=== PATIENT | female | born 1935 | race Caucasian/White ===

== ENCOUNTER → 2016-07-12 | Outpatient (CLI) | payer MEDICARE, BC ==
[2016-06-20 11:39] VITALS: BP 105/56
[~2016-07-12] MED LIST: ACET325T21 PO; ALLO100T PO; AMLO5TAB2; AMOX1TAB58 PO; ASPI-482 PO; ATEN25TA PO; ATOR10TA60 PO; BENZ100C2 PO; BUPR150T15 PO; CALC500T50 PO; CHOL100013 PO; CIPR250T; CLOP75TA27 PO; COLC0.6T34 PO; CYAN10005 PO; DOCU-27 PO; Erythromycin Base PO; FERR-26 PO; FISH OIL OMEGA1 EACH PO; FLUD0.1T; FLUT1DIS3 IH; FURO-69 PO; HYDR12.58 PO; HYDR1TAB12 PO; HYDR1TAB20 PO; IPRA3AMP NEB; ISOS30TA4; ISOS30TA4 PO; LOVA40TA2 PO; NITR100C62 PO; OMEG1CAP6 PO; OMEG300C PO; ONDA4TAB7 PO; PANT40GR PO; POTA25TA4 PO; PRED5POW MC; PRED5TAB PO; PREG75CA PO; SILV400C TP; TAMS0.4C97 PO; ZINC30OI TP
[2016-07-12 12:16] LABS: ALBUMIN 3.3 g/dL (3.4-5.0); CALCIUM 8.9 mg/dL (8.5-10.1); CREATININE 1.7 mg/dL (0.6-1.0); MAGNESIUM 1.8 mg/dL (1.8-2.4); PHOSPHORUS 3.5 mg/dL (2.6-4.7); POTASSIUM 3.3 mmol/L (3.5-5.1)
[2016-07-12 12:17] LABS: BASO # 0.1 x10^3/uL (0.0-0.2); BASO % 1 % (0-3); EOS % 7 % (0-3); HEMATOCRIT 31.5 % (36.0-47.0); HEMOGLOBIN 10.1 g/dL (12.0-15.5); LYMPH # 2.7 x10^3/uL (1.0-4.8); LYMPH % 27 % (24-48); MEAN CORPUSCULAR HEMOGLOBIN 32 pg (25-35); MEAN CORPUSCULAR HGB CONC 32 g/dL (31-37); MEAN CORPUSCULAR VOLUME 98 fL (79-100); MONO % 7 % (0-9); NEUT % 58 % (31-73); PLATELET COUNT 207 x10^3/uL (140-400); RED CELL DISTRIBUTION WIDTH 17.2 % (11.5-14.5); WHITE BLOOD COUNT 9.7 x10^3/uL (4.0-11.0)
[2016-07-13 03:21] LABS: PTH INTACT 56 pg/mL (15-65)
== END | disposition home or self-care (01) ==
LOC: LAB 11:36
PROVIDERS: ATTEND Nurse Practitioner Family
DX: N18.4 Chronic kidney disease, stage 4 (severe) (principal); D63.1 Anemia in chronic kidney disease; N39.0 Urinary tract infection, site not specified; N25.81 Secondary hyperparathyroidism of renal origin; Z68.26 Body mass index [BMI] 26.0-26.9, adult
CPT/HCPCS: 36415; 80069; 83735; 83970; 85027

== ENCOUNTER → 2016-11-22 | Outpatient (CLI) | payer MEDICARE, BC ==
[~2016-11-22] MED LIST changes: +BENZ100C15 PO; -BENZ100C2 PO; -CALC500T50 PO; +CALC500T54 PO; -CLOP75TA27 PO; +CLOP75TA57 PO; +DOCU-109 PO; -DOCU-27 PO
[2016-11-22 11:35] VITALS: BP 113/55
[2016-11-22 12:13] LABS: BACTERIA,URINE MANY /HPF (0-FEW); BILIRUBIN,URINE NEGATIVE (NEG); GLUCOSE,URINE NEGATIVE (NEG); NITRITE,URINE NEGATIVE (NEG); PH,URINE 5.5; PROTEIN,URINE 30 mg/dL (NEG-TRACE); SQUAMOUS EPITHELIAL CELL,UR FEW /LPF; UROBILINOGEN,URINE 0.2 mg/dL (0.2 mg/dL); WBC,URINE TNTC /HPF (0-4)
== END | disposition home or self-care (01) ==
LOC: OPS 10:57
PROVIDERS: ATTEND Internal Medicine Infectious Disease
DX: B96.1 Klebsiella pneumoniae [K. pneumoniae] as the cause of diseases classified elsewhere (principal)
CPT/HCPCS: 81001; 87086; 87186

== ENCOUNTER 2016-12-07 18:04 | Emergency (ER) | payer MEDICARE, BC ==
--- NOTE | 2016-12-07 18:30 | PHYS DOC ---
Past Medical History Past Medical History: CAD, CHF, COPD, Depression, Hypertension, Renal Failure, Other Additional Past Medical Histor: NARCOLEPSY, gout, chronic kidney disease Past Surgical History: Angioplasty, Appendectomy, Cholecystectomy, Tonsillectomy, Other Additional Past Surgical Histo: Back surgery Alcohol Use: None Drug Use: None Social History Narrative: Lives with family; non ambulatory Adult General Chief Complaint Chief Complaint: MECHANICAL FALL HPI HPI Patient is a 81 year old female who presents with fall. She is nonambulatory and was transferring from the commode to her chair and fell. She hit the back of her head against the couch. No LOC. Some neck pain. No numbness or tingling or weakness of her arms or legs. Family was in the home and was able to come to her aid. Review of Systems Review of Systems Constitutional: Denies fever or chills Eyes: Denies change in visual acuity, redness, or eye pain HENT: Denies nasal congestion or sore throat Respiratory: Denies cough or shortness of breath Cardiovascular: No chest pain, no syncope. GI: Denies abdominal pain, nausea, vomiting, bloody stools or diarrhea : Denies dysuria or hematuria Musculoskeletal: Denies back pain or joint pain Integument: Denies rash or skin lesions Neurologic: Some headache, No focal weakness or sensory changes Endocrine: Denies polyuria or polydipsia Allergies Allergies Allergies Coded Allergies Type Severity Reaction Last Updated Verified I S O L A T I O N *CONTACT* Allergy Unknown 12/03/16 Yes No Known Medication Allergies Allergy Unknown 12/03/16 Yes Physical Exam Physical Exam Constitutional: Well developed, well nourished, no acute distress, non-toxic appearance. HENT: Normocephalic, pain to palpation to back of scalp; no bruising; no laceration; no swelling. TM clear bilaterally without hemotympanum, bilateral external ears normal, oropharynx moist, no oral exudates, nose normal. Eyes: PERRLA, EOMI, conjunctiva normal, no discharge. Neck: Normal range of motion, no tenderness, supple, no stridor. No pain on palpation of cervical spine. No stepoff or crepitance. Cardiovascular:Heart rate regular rhythm, no murmur Lungs & Thorax: Bilateral breath sounds clear to auscultation Abdomen: Bowel sounds normal, soft, no tenderness, no masses, no pulsatile masses. Skin: Warm, dry, no erythema, no rash. Back: No tenderness, no CVA tenderness. Extremities: No tenderness, no cyanosis, no clubbing, ROM limited (baseline) of RLE. Some bilaterally edema. Neurologic: Alert and oriented X 3, normal motor function, normal sensory function, no focal deficits noted. Psychologic: Affect normal, judgement normal, mood normal. Current Patient Data Vital Signs Vital Signs Date Time Temp Pulse Resp B/P (MAP) Pulse Ox O2 Delivery O2 Flow Rate FiO2 12/07/16 18:04 98.3 86 20 148/71 (96) 95 Nasal Cannula 2.0 98.3 Radiology/Procedures Radiology/Procedures [facility] [address] [place] [address] IMAGING REPORT Signed PATIENT: HELDER BARTHOLOMEW ACCOUNT: [id number] : 1935 LOCATION: ER AGE: 81 SEX: F EXAM STATUS: REG ER ORD. PHYSICIAN: LORRIE LEONARD MD REASON: fall PROCEDURE: CT HEAD AND CERVICAL SPINE WO PQRS Compliance Statement: One or more of the following individualized dose reduction techniques were utilized for this examination: 1. Automated exposure control 2. Adjustment of the mA and/or kV according to patient size 3. Use of iterative reconstruction technique CT HEAD AND CERVICAL SPINE WITHOUT CONTRAST History: fall, hit back of head, Comparison: CT head and cervical spine without contrast, October 23, 2013. Procedure: Axial images are obtained of the head from the skull base through the vertex without IV contrast. Noncontrast helical CT of the cervical spine was performed. Axial, sagittal, and coronal reconstructions were obtained. Findings: The ventricles and sulci are prominent, consistent with age-related cerebral atrophy. There is scattered periventricular white matter hypoattenuation. This is a nonspecific finding but is commonly due to chronic small vessel ischemic disease in a patient of this age. No mass-effect, midline shift, hemorrhage or obvious acute infarction is identified. Basilar cisterns are patent. Bone windows demonstrate no significant calvarial abnormality. The visualized paranasal sinuses are clear. Mastoid air cells are well aerated. There is no evidence of acute fracture or acute malalignment. There is disc space narrowing and degenerative endplate spurring. This is most advanced at C5/C6. The facet joints are intact, mild to moderately hypertrophic. There is neural foraminal narrowing at C5/C6 that appears to be severe bilaterally, worse on the right. Visualized soft tissues of the neck demonstrate no significant abnormalities. The visualized lung apices are clear. IMPRESSION: 1. No acute intracranial abnormality. 2. No acute fracture of the cervical spine. Electronically signed by: Nasim Nichole MD (12/07/2016 7:13 PM) [facility] [id number] DICTATED and SIGNED BY: NASIM NICHOLE MD DATE: 12/07/161905 CC: LORRIE LEONARD MD; STACY CASEY MD ~ Course & Med Decision Making Course & Med Decision Making Pertinent Labs and Imaging studies reviewed. (See chart for details) Met patient upon arrival to the ED. CT head and cspine ordered. At 1925 PM: CT report negative for acute injury for head and neck. D/C to home with care instructions. Dragon Disclaimer Dragon Disclaimer This electronic medical record was generated, in whole or in part, using a voice recognition dictation system. Departure Departure Impression: Primary Impression: Fall Additional Impression: Head contusion Disposition: HOME, SELF-CARE Condition: GOOD Referrals: STACY CASEY MD (PCP) Patient Instructions: Facial or Scalp Contusion Problem Qualifiers LORRIE LEONARD MD Dec 07, 2016 18:30
[2016-12-07 19:08] VITALS: BP 152/69
--- NOTE | 2016-12-07 19:16 | RAD ---
RS Compliance Statement: One or more of the following individualized dose reduction techniques were utilized for this examination: 1. Automated exposure control 2. Adjustment of the mA and/or kV according to patient size 3. Use of iterative reconstruction technique CT HEAD AND CERVICAL SPINE WITHOUT CONTRAST History: fall, hit back of head, Comparison: CT head and cervical spine without contrast, October 23, 2013. Procedure: Axial images are obtained of the head from the skull base through the vertex without IV contrast. Noncontrast helical CT of the cervical spine was performed. Axial, sagittal, and coronal reconstructions were obtained. Findings: The ventricles and sulci are prominent, consistent with age-related cerebral atrophy. There is scattered periventricular white matter hypoattenuation. This is a nonspecific finding but is commonly due to chronic small vessel ischemic disease in a patient of this age. No mass-effect, midline shift, hemorrhage or obvious acute infarction is identified. Basilar cisterns are patent. Bone windows demonstrate no significant calvarial abnormality. The visualized paranasal sinuses are clear. Mastoid air cells are well aerated. There is no evidence of acute fracture or acute malalignment. There is disc space narrowing and degenerative endplate spurring. This is most advanced at C5/C6. The facet joints are intact, mild to moderately hypertrophic. There is neural foraminal narrowing at C5/C6 that appears to be severe bilaterally, worse on the right. Visualized soft tissues of the neck demonstrate no significant abnormalities. The visualized lung apices are clear. IMPRESSION: 1. No acute intracranial abnormality. 2. No acute fracture of the cervical spine. Electronically signed by: Nasim Nichole MD (12/07/2016 7:13 PM) [facility]
== END 2016-12-07 19:38 | disposition home or self-care (01) ==
LOC: ER 18:04
DX: S00.03XA Contusion of scalp, initial encounter (principal); M54.2 Cervicalgia; I25.10 Atherosclerotic heart disease of native coronary artery without angina pectoris; I13.0 Hypertensive heart and chronic kidney disease with heart failure and stage 1 through stage 4 chronic kidney disease, or unspecified chronic kidney disease; I50.9 Heart failure, unspecified; N18.9 Chronic kidney disease, unspecified; J44.9 Chronic obstructive pulmonary disease, unspecified; F32.9 Major depressive disorder, single episode, unspecified; M10.9 Gout, unspecified; G47.419 Narcolepsy without cataplexy; Z90.49 Acquired absence of other specified parts of digestive tract; Z91.041 Radiographic dye allergy status; Z98.61 Coronary angioplasty status; W18.39XA Other fall on same level, initial encounter; Y93.89 Activity, other specified; Y92.89 Other specified places as the place of occurrence of the external cause; Y99.8 Other external cause status
CPT/HCPCS: 70450; 72125; 99284-25

== ENCOUNTER → 2017-01-16 | Outpatient (CLI) | payer MEDICARE, BC ==
[2017-01-15 11:08] VITALS: BP 153/66
--- NOTE | 2017-01-16 10:36 | RAD ---
Indication difficulty breathing. Pulmonary fibrosis. Noncontrast imaging through the chest was performed. Note is made of a previous examination June 01, 2016. Imaging through the upper abdomen is unremarkable. Moderately extensive coronary calcification is noted. There is no significant hilar or mediastinal adenopathy. There are some fibrotic changes in the left upper lobe and, to a lesser extent, in the right upper lobe as well as at the right lung base. Advanced fibrotic changes are not seen. No significant emphysematous changes are seen. There is no pleural fluid in either lung. A dominant soft tissue mass in either lung is not seen. IMPRESSION: Modest fibrotic changes in the lungs. No definite acute finding seen PQRS Compliance Statement: One or more of the following individualized dose reduction techniques were utilized for this examination: 1. Automated exposure control 2. Adjustment of the mA and/or kV according to patient size 3. Use of iterative reconstruction technique
== END | disposition home or self-care (01) ==
LOC: CT 08:33
PROVIDERS: ATTEND Internal Medicine Critical Care Medicine
DX: J84.10 Pulmonary fibrosis, unspecified (principal)
CPT/HCPCS: 71250

== ENCOUNTER → 2017-02-19 | Outpatient (CLI) | payer MEDICARE, BC ==
[2017-02-19 11:56] VITALS: BP 134/67
[2017-02-19 12:07] LABS: BASO # 0.1 x10^3/uL (0.0-0.2); BASO % 1 % (0-3); EOS % 5 % (0-3); HEMATOCRIT 36.7 % (36.0-47.0); LYMPH # 2.5 x10^3/uL (1.0-4.8); LYMPH % 24 % (24-48); MEAN CORPUSCULAR HEMOGLOBIN 30 pg (25-35); MEAN CORPUSCULAR HGB CONC 33 g/dL (31-37); MEAN CORPUSCULAR VOLUME 92 fL (79-100); MONO % 10 % (0-9); NEUT % 60 % (31-73); PLATELET COUNT 201 x10^3/uL (140-400); RED BLOOD COUNT 3.97 x10^6/uL (3.50-5.40); RED CELL DISTRIBUTION WIDTH 15.9 % (11.5-14.5); WHITE BLOOD COUNT 10.1 x10^3/uL (4.0-11.0)
[2017-02-19 12:26] LABS: % SAT IRON 24 % (15-34); IRON,SERUM 68 ug/dL (50-170)
[2017-02-19 12:39] LABS: CREATININE 2.2 mg/dL (0.6-1.0); GFR 21.5; MAGNESIUM 1.8 mg/dL (1.8-2.4); PHOSPHORUS 4.3 mg/dL (2.6-4.7)
[2017-02-20 13:23] LABS: PTH INTACT 47 pg/mL (15-65)
== END | disposition home or self-care (01) ==
LOC: LAB 11:14
PROVIDERS: ATTEND Internal Medicine Nephrology
DX: I12.9 Hypertensive chronic kidney disease with stage 1 through stage 4 chronic kidney disease, or unspecified chronic kidney disease (principal); N18.4 Chronic kidney disease, stage 4 (severe); N39.0 Urinary tract infection, site not specified; E87.6 Hypokalemia; D63.1 Anemia in chronic kidney disease; R80.9 Proteinuria, unspecified; Z68.25 Body mass index [BMI] 25.0-25.9, adult
CPT/HCPCS: 36415; 80069; 82728; 83540; 83550; 83735; 83970; 85025

== ENCOUNTER 2017-09-07 09:08 | Inpatient (IN) | payer MEDICARE, OTHER ==
[2017-09-07 09:32] LABS: BILIRUBIN,URINE NEGATIVE (NEG); CLARITY,URINE CLOUDY; COLOR,URINE YELLOW; GLUCOSE,URINE NEGATIVE (NEG); NITRITE,URINE NEGATIVE (NEG); PROTEIN,URINE 100 mg/dL (NEG-TRACE); UROBILINOGEN,URINE 0.2 mg/dL (0.2 mg/dL)
[2017-09-07 09:45] LABS: ADD MAN DIFF? NO
[2017-09-07] MEDS: IV NORMAL SALINE 1000ML BAG 1,000 ML IV ×5 (09:47→23:06)
[2017-09-07] MEDS: ONDANSETRON PF 4 MG/2 ML VIAL. IV (09:48)
[2017-09-07] MEDS: ACETAMINOPHEN 325 MG TABLET. PO (09:50)
[2017-09-07 09:56] LABS: ANION GAP 11 (6-14); BLOOD UREA NITROGEN 27 mg/dL (7-20); BUN/CREATININE RATIO 14 (6-20); CALCIUM 9.7 mg/dL (8.5-10.1); CARBON DIOXIDE 27 mmol/L (21-32); CHLORIDE 105 mmol/L (98-107); CREATININE 1.9 mg/dL (0.6-1.0); GFR 25.4; GLUCOSE 139 mg/dL (70-99); POTASSIUM 3.9 mmol/L (3.5-5.1); SODIUM 143 mmol/L (136-145)
[2017-09-07 10:00] LABS: BASO # 0.1 x10^3/uL (0.0-0.2); BASO % 1 % (0-3); EOS # 0.1 x10^3/uL (0.0-0.7); EOS % 1 % (0-3); HEMATOCRIT 35.6 % (36.0-47.0); LYMPH # 1.7 x10^3/uL (1.0-4.8); LYMPH % 11 % (24-48); MEAN CORPUSCULAR HEMOGLOBIN 32 pg (25-35); MEAN CORPUSCULAR HGB CONC 34 g/dL (31-37); MEAN CORPUSCULAR VOLUME 96 fL (79-100); MONO # 1.3 x10^3/uL (0.0-1.1); MONO % 8 % (0-9); NEUT # 12.4 x10^3uL (1.8-7.7); NEUT % 80 % (31-73); PLATELET COUNT 171 x10^3/uL (140-400); RED BLOOD COUNT 3.69 x10^6/uL (3.50-5.40); RED CELL DISTRIBUTION WIDTH 14.6 % (11.5-14.5); WHITE BLOOD COUNT 15.5 x10^3/uL (4.0-11.0)
[2017-09-07 10:01] LABS: BACTERIA,URINE MODERATE /HPF (0-FEW); RBC,URINE 0 /HPF (0-2); SQUAMOUS EPITHELIAL CELL,UR FEW /LPF; WBC,URINE 20-40 /HPF (0-4)
[2017-09-07 10:02] LABS: ALBUMIN 3.2 g/dL (3.4-5.0); ALBUMIN/GLOBULIN RATIO 0.8 (1.0-1.7); ALK PHOS 47 U/L (46-116); ALT (SGPT) 20 U/L (14-59); AST (SGOT) 12 U/L (15-37)
[2017-09-07 10:05] LABS: LACTIC ACID 2.6 mmol/L (0.4-2.0)
[2017-09-07] MEDS ORDERED: IV NORMAL SALINE 500ML BAG 500 ML IV (10:30)
[2017-09-07] MEDS ORDERED: ONDANSETRON PF 4 MG/2 ML VIAL. IV (10:30)
[2017-09-07] MEDS ORDERED: NOREPINEPHRIN PREMIX 250 ML IV (10:30)
[2017-09-07] MEDS ORDERED: NOREPINEPHRINE VIAL 8 MG in IV NORMAL SALINE 250ML 250 ML IV (10:45)
[2017-09-07 11:58] LABS: PROCALCITONIN 2.48 ng/mL (0.00-0.10)
[2017-09-07] MEDS ORDERED: LABETALOL 20 MG/4 ML DISP.SYRIN. IVP (12:00)
[2017-09-07] MEDS: IPRATRPIUM/ALBUTEROL 0.5/2.5MG 3 ML NEBU. NEB ×3 (12:15→20:45)
[2017-09-07] MEDS ORDERED: BENZONATATE 100 MG CAPSULE. PO (12:15)
[2017-09-07] MEDS ORDERED: ACETAMINOPHEN 325 MG TABLET. PO (12:15)
[2017-09-07] MEDS: BUDESONIDE 0.5 MG/2 ML NEBU. NEB ×2 (12:30→20:45)
[2017-09-07] MEDS: amLODIPine BESYLATE 5 MG TABLET PO (13:00)
[2017-09-07] MEDS: ISOSORBIDE MONONITRATE ER 30 MG TAB.ER.24H PO (13:00)
[2017-09-07] MEDS: ASPIRIN ENTERIC COATED 81 MG TABLET.DR. PO (13:00)
[2017-09-07] MEDS: COLCHICINE 0.6 MG TABLET PO (13:00)
[2017-09-07] MEDS: OMEGA-3 FATTY ACIDS/FISH OIL 1,000 MG CAPSULE. PO (13:00)
[2017-09-07] MEDS: cefTRIAXone IV Push 1 GM VIAL. IVP (13:19)
[2017-09-07] MEDS: PANTOPRAZOLE IV PUSH 40 MG VIAL. IVP (13:19)
[2017-09-07] MEDS: HEPARIN PF for SUB-Q USE 5,000 UNIT/0.5 ML VIAL. SQ ×2 (13:34→21:22)
[2017-09-07] MEDS: CLOPIDOGREL BISULFATE 75 MG TABLET PO (16:20)
[2017-09-07 17:22] LABS: LACTIC ACID 1.1 mmol/L (0.4-2.0)
[2017-09-07] MEDS: ACETAMINOPHEN 650 MG SUPP.RECT. PR (18:11)
[2017-09-07] MEDS: ATORVASTATIN CALCIUM 10 MG TABLET. PO (21:00)
[2017-09-07] MEDS: ALLOPURINOL 100 MG TABLET. PO (21:00)
[2017-09-07] MEDS: DOCUSATE SODIUM 100 MG CAPSULE. PO (21:00)
[2017-09-07] MEDS ORDERED: NON FORMULARY ITEM (Fluticasone/Salmeterol (Advair 250-50 Diskus) 1 EACH) IH (21:00)
[2017-09-08] MEDS: ONDANSETRON PF 4 MG/2 ML VIAL. IV (03:35)
[2017-09-08] MEDS: fentaNYL PF VIAL 100 MCG/2 ML VIAL IV (03:44)
[2017-09-08 04:24] LABS: ADD MAN DIFF? NO
[2017-09-08 04:25] LABS: BASO # 0.1 x10^3/uL (0.0-0.2); BASO % 1 % (0-3); EOS # 0.2 x10^3/uL (0.0-0.7); EOS % 2 % (0-3); HEMATOCRIT 30.3 % (36.0-47.0); HEMOGLOBIN 10.3 g/dL (12.0-15.5); LYMPH # 1.7 x10^3/uL (1.0-4.8); LYMPH % 17 % (24-48); MEAN CORPUSCULAR HEMOGLOBIN 33 pg (25-35); MEAN CORPUSCULAR HGB CONC 34 g/dL (31-37); MEAN CORPUSCULAR VOLUME 97 fL (79-100); MONO % 10 % (0-9); NEUT # 7.1 x10^3uL (1.8-7.7); NEUT % 71 % (31-73); PLATELET COUNT 142 x10^3/uL (140-400); RED BLOOD COUNT 3.11 x10^6/uL (3.50-5.40); RED CELL DISTRIBUTION WIDTH 14.8 % (11.5-14.5); WHITE BLOOD COUNT 10.1 x10^3/uL (4.0-11.0)
[2017-09-08 04:40] LABS: ANION GAP 11 (6-14); BLOOD UREA NITROGEN 29 mg/dL (7-20); CALCIUM 8.2 mg/dL (8.5-10.1); CARBON DIOXIDE 25 mmol/L (21-32); CHLORIDE 109 mmol/L (98-107); CREATININE 1.7 mg/dL (0.6-1.0); GFR 28.9; GLUCOSE 113 mg/dL (70-99); POTASSIUM 3.8 mmol/L (3.5-5.1); SODIUM 145 mmol/L (136-145)
[2017-09-08 04:51] LABS: LACTIC ACID 0.8 mmol/L (0.4-2.0)
[2017-09-08] MEDS: HEPARIN PF for SUB-Q USE 5,000 UNIT/0.5 ML VIAL. SQ ×3 (05:54→23:03)
[2017-09-08] MEDS: PROCHLORPERAZINE 10 MG/2 ML VIAL. IV ×2 (06:31→16:24)
[2017-09-08] MEDS: BUDESONIDE 0.5 MG/2 ML NEBU. NEB ×2 (07:24→20:09)
[2017-09-08] MEDS: IPRATRPIUM/ALBUTEROL 0.5/2.5MG 3 ML NEBU. NEB ×4 (07:24→20:09)
[2017-09-08] MEDS ORDERED: NON FORMULARY ITEM (Pantoprazole Sodium (Protonix) 40 MG) PO (07:30)
[2017-09-08] MEDS: PANTOPRAZOLE IV PUSH 40 MG VIAL. IVP (07:43)
[2017-09-08] MEDS: IV NORMAL SALINE 1000ML BAG 1,000 ML IV ×2 (09:30→18:00)
[2017-09-08] MEDS: MEROPENEM 500 MG in IV NORMAL SALINE 50ML 50 ML IV ×2 (12:45→22:56)
[2017-09-08] MEDS: IOHEXOL 300 MG/ML 50 ML VIAL. PO (12:45)
[2017-09-08] MEDS ORDERED: CONTRAST GIVEN MC (13:00)
[2017-09-08] MEDS: IOHEXOL 240 MG/ML 50ML VIAL. IV (14:15)
[2017-09-08] MEDS: CAPSAICIN 0.025% TOPICAL CREAM 60GM TUBE. TP ×2 (14:55→22:56)
[2017-09-08] MEDS: ALLOPURINOL 100 MG TABLET. PO ×2 (16:25→21:02)
[2017-09-08] MEDS: amLODIPine BESYLATE 5 MG TABLET PO (16:25)
[2017-09-08] MEDS: COLCHICINE 0.6 MG TABLET PO (16:25)
[2017-09-08] MEDS: ISOSORBIDE MONONITRATE ER 30 MG TAB.ER.24H PO (16:25)
[2017-09-08] MEDS: OMEGA-3 FATTY ACIDS/FISH OIL 1,000 MG CAPSULE. PO (16:26)
[2017-09-08] MEDS: ASPIRIN ENTERIC COATED 81 MG TABLET.DR. PO (16:26)
[2017-09-08] MEDS: CLOPIDOGREL BISULFATE 75 MG TABLET PO (16:26)
[2017-09-08] MEDS: DOCUSATE SODIUM 100 MG CAPSULE. PO ×2 (16:26→21:02)
[2017-09-08] MEDS: ACETAMINOPHEN 500 MG TABLET PO (21:02)
[2017-09-08] MEDS: ATORVASTATIN CALCIUM 10 MG TABLET. PO (21:02)
[2017-09-08] MEDS: HYDROcodone/APAP 5/325MG 1 TAB TABLET PO (21:03)
[2017-09-09] MEDS: IV NORMAL SALINE 1000ML BAG 1,000 ML IV ×3 (00:32→23:50)
[2017-09-09] MEDS: MEROPENEM 500 MG in IV NORMAL SALINE 50ML 50 ML IV (06:15)
[2017-09-09] MEDS: FAMOTIDINE 20 MG/2 ML VIAL IVP (06:17)
[2017-09-09] MEDS: HEPARIN PF for SUB-Q USE 5,000 UNIT/0.5 ML VIAL. SQ ×3 (06:23→21:11)
[2017-09-09] MEDS: IPRATRPIUM/ALBUTEROL 0.5/2.5MG 3 ML NEBU. NEB ×4 (07:17→20:00)
[2017-09-09] MEDS: BUDESONIDE 0.5 MG/2 ML NEBU. NEB ×2 (07:17→20:00)
[2017-09-09 08:26] LABS: ADD MAN DIFF? NO
[2017-09-09 08:30] LABS: BASO % 1 % (0-3); EOS # 0.3 x10^3/uL (0.0-0.7); EOS % 6 % (0-3); HEMATOCRIT 26.7 % (36.0-47.0); HEMOGLOBIN 8.9 g/dL (12.0-15.5); LYMPH # 1.7 x10^3/uL (1.0-4.8); LYMPH % 29 % (24-48); MEAN CORPUSCULAR HEMOGLOBIN 32 pg (25-35); MEAN CORPUSCULAR HGB CONC 33 g/dL (31-37); MEAN CORPUSCULAR VOLUME 96 fL (79-100); MONO # 0.5 x10^3/uL (0.0-1.1); MONO % 9 % (0-9); NEUT # 3.2 x10^3uL (1.8-7.7); NEUT % 56 % (31-73); PLATELET COUNT 143 x10^3/uL (140-400); RED BLOOD COUNT 2.77 x10^6/uL (3.50-5.40); RED CELL DISTRIBUTION WIDTH 14.5 % (11.5-14.5); WHITE BLOOD COUNT 5.8 x10^3/uL (4.0-11.0)
[2017-09-09] MEDS: PROCHLORPERAZINE 10 MG/2 ML VIAL. IV ×2 (08:31→17:23)
[2017-09-09] MEDS: DOCUSATE SODIUM 100 MG CAPSULE. PO ×2 (08:32→21:05)
[2017-09-09] MEDS: COLCHICINE 0.6 MG TABLET PO (08:32)
[2017-09-09] MEDS: OMEGA-3 FATTY ACIDS/FISH OIL 1,000 MG CAPSULE. PO (08:32)
[2017-09-09] MEDS: ALLOPURINOL 100 MG TABLET. PO ×2 (08:32→21:05)
[2017-09-09] MEDS: ASPIRIN ENTERIC COATED 81 MG TABLET.DR. PO (08:32)
[2017-09-09] MEDS: ISOSORBIDE MONONITRATE ER 30 MG TAB.ER.24H PO (08:32)
[2017-09-09] MEDS: amLODIPine BESYLATE 5 MG TABLET PO (08:33)
[2017-09-09] MEDS: CAPSAICIN 0.025% TOPICAL CREAM 60GM TUBE. TP ×3 (08:33→21:06)
[2017-09-09 08:54] LABS: ANION GAP 11 (6-14); BLOOD UREA NITROGEN 19 mg/dL (7-20); CALCIUM 8.1 mg/dL (8.5-10.1); CARBON DIOXIDE 23 mmol/L (21-32); CHLORIDE 110 mmol/L (98-107); CREATININE 1.5 mg/dL (0.6-1.0); GFR 33.4; GLUCOSE 102 mg/dL (70-99); POTASSIUM 3.6 mmol/L (3.5-5.1); SODIUM 144 mmol/L (136-145)
[2017-09-09] MEDS: CLOPIDOGREL BISULFATE 75 MG TABLET PO (17:22)
[2017-09-09] MEDS: LINEZOLID 600 MG TABLET PO (21:05)
[2017-09-09] MEDS: ATORVASTATIN CALCIUM 10 MG TABLET. PO (21:05)
[2017-09-09] MEDS: LACTOBACILLUS RHAMNOSUS GG 1 CAPSULE. PO (21:06)
[2017-09-09] MEDS: HYDROcodone/APAP 5/325MG 1 TAB TABLET PO (23:17)
[2017-09-10 03:53] LABS: HEMATOCRIT 26.3 % (36.0-47.0); MEAN CORPUSCULAR HEMOGLOBIN 33 pg (25-35); MEAN CORPUSCULAR HGB CONC 34 g/dL (31-37); MEAN CORPUSCULAR VOLUME 96 fL (79-100); PLATELET COUNT 151 x10^3/uL (140-400); RED BLOOD COUNT 2.74 x10^6/uL (3.50-5.40); RED CELL DISTRIBUTION WIDTH 14.6 % (11.5-14.5); WHITE BLOOD COUNT 4.5 x10^3/uL (4.0-11.0)
[2017-09-10] MEDS: FAMOTIDINE 20 MG/2 ML VIAL IVP (04:55)
[2017-09-10] MEDS: HEPARIN PF for SUB-Q USE 5,000 UNIT/0.5 ML VIAL. SQ ×3 (05:00→21:32)
[2017-09-10 05:30] LABS: ALBUMIN 2.5 g/dL (3.4-5.0); ALBUMIN/GLOBULIN RATIO 0.8 (1.0-1.7); ALK PHOS 32 U/L (46-116); ALT (SGPT) 15 U/L (14-59); ANION GAP 9 (6-14); AST (SGOT) 11 U/L (15-37); BLOOD UREA NITROGEN 13 mg/dL (7-20); BUN/CREATININE RATIO 10 (6-20); CALCIUM 8.1 mg/dL (8.5-10.1); CARBON DIOXIDE 25 mmol/L (21-32); CHLORIDE 111 mmol/L (98-107); CREATININE 1.3 mg/dL (0.6-1.0); GFR 39.4; GLUCOSE 97 mg/dL (70-99); POTASSIUM 3.5 mmol/L (3.5-5.1); SODIUM 145 mmol/L (136-145); TOTAL BILIRUBIN 0.4 mg/dL (0.2-1.0); TOTAL PROTEIN 5.8 g/dL (6.4-8.2)
[2017-09-10 07:39] LABS: SEDIMENTATION RATE 78 (0-25)
[2017-09-10] MEDS: PROCHLORPERAZINE 10 MG/2 ML VIAL. IV (07:43)
[2017-09-10] MEDS: IPRATRPIUM/ALBUTEROL 0.5/2.5MG 3 ML NEBU. NEB ×4 (08:00→19:53)
[2017-09-10] MEDS: CAPSAICIN 0.025% TOPICAL CREAM 60GM TUBE. TP ×3 (09:00→21:34)
[2017-09-10] MEDS: OMEGA-3 FATTY ACIDS/FISH OIL 1,000 MG CAPSULE. PO (09:23)
[2017-09-10] MEDS: amLODIPine BESYLATE 5 MG TABLET PO (09:24)
[2017-09-10] MEDS: predniSONE 20 MG TABLET PO (09:24)
[2017-09-10] MEDS: ALLOPURINOL 100 MG TABLET. PO ×2 (09:25→21:28)
[2017-09-10] MEDS: ISOSORBIDE MONONITRATE ER 30 MG TAB.ER.24H PO (09:25)
[2017-09-10] MEDS: LINEZOLID 600 MG TABLET PO (09:25)
[2017-09-10] MEDS: ASPIRIN ENTERIC COATED 81 MG TABLET.DR. PO (09:26)
[2017-09-10] MEDS: DOCUSATE SODIUM 100 MG CAPSULE. PO ×2 (09:26→21:28)
[2017-09-10] MEDS: LACTOBACILLUS RHAMNOSUS GG 1 CAPSULE. PO ×2 (09:26→21:28)
[2017-09-10] MEDS: BUDESONIDE 0.5 MG/2 ML NEBU. NEB ×2 (11:44→19:54)
[2017-09-10] MEDS: AMOXICILLIN/K CLAV 500/125MG TABLET. PO ×2 (11:51→21:28)
[2017-09-10] MEDS: COLCHICINE 0.6 MG TABLET PO (11:52)
[2017-09-10] MEDS: CLOPIDOGREL BISULFATE 75 MG TABLET PO (16:54)
[2017-09-10] MEDS: ONDANSETRON ODT 4 MG TAB.RAPDIS. PO ×2 (16:55→22:04)
[2017-09-10] MEDS: ATORVASTATIN CALCIUM 10 MG TABLET. PO (21:28)
[2017-09-11] MEDS: BUDESONIDE 0.5 MG/2 ML NEBU. NEB (08:00)
[2017-09-11] MEDS: IPRATRPIUM/ALBUTEROL 0.5/2.5MG 3 ML NEBU. NEB ×2 (08:00→10:49)
[2017-09-11] MEDS: ALLOPURINOL 100 MG TABLET. PO (09:08)
[2017-09-11] MEDS: COLCHICINE 0.6 MG TABLET PO (09:08)
[2017-09-11] MEDS: OMEGA-3 FATTY ACIDS/FISH OIL 1,000 MG CAPSULE. PO (09:08)
[2017-09-11] MEDS: predniSONE 20 MG TABLET PO (09:09)
[2017-09-11] MEDS: AMOXICILLIN/K CLAV 500/125MG TABLET. PO (09:09)
[2017-09-11] MEDS: DOCUSATE SODIUM 100 MG CAPSULE. PO (09:09)
[2017-09-11] MEDS: ISOSORBIDE MONONITRATE ER 30 MG TAB.ER.24H PO (09:09)
[2017-09-11] MEDS: LACTOBACILLUS RHAMNOSUS GG 1 CAPSULE. PO (09:10)
[2017-09-11] MEDS: amLODIPine BESYLATE 5 MG TABLET PO (09:10)
[2017-09-11] MEDS: ASPIRIN ENTERIC COATED 81 MG TABLET.DR. PO (09:10)
[2017-09-11] MEDS: CAPSAICIN 0.025% TOPICAL CREAM 60GM TUBE. TP ×2 (09:11→14:00)
[2017-09-11] MEDS: FAMOTIDINE 20 MG TABLET. PO (09:11)
[2017-09-11] MEDS: HEPARIN PF for SUB-Q USE 5,000 UNIT/0.5 ML VIAL. SQ ×2 (12:00→14:00)
== END 2017-09-11 15:30 | disposition home or self-care (01) | DRG 871 ==
LOC: ER 09:08 → 5 SOUTH 10:31
DX: A41.9 Sepsis, unspecified organism (principal); G93.41 Metabolic encephalopathy; N17.9 Acute kidney failure, unspecified; I13.0 Hypertensive heart and chronic kidney disease with heart failure and stage 1 through stage 4 chronic kidney disease, or unspecified chronic kidney disease; N39.0 Urinary tract infection, site not specified; I50.9 Heart failure, unspecified; G62.9 Polyneuropathy, unspecified; B95.2 Enterococcus as the cause of diseases classified elsewhere; E78.5 Hyperlipidemia, unspecified; F41.9 Anxiety disorder, unspecified; G47.419 Narcolepsy without cataplexy; I25.10 Atherosclerotic heart disease of native coronary artery without angina pectoris; J44.9 Chronic obstructive pulmonary disease, unspecified; F32.9 Major depressive disorder, single episode, unspecified; M17.0 Bilateral primary osteoarthritis of knee; E66.3 Overweight; M31.6 Other giant cell arteritis; N18.9 Chronic kidney disease, unspecified; M10.9 Gout, unspecified; R13.10 Dysphagia, unspecified; Z79.52 Long term (current) use of systemic steroids; Z82.49 Family history of ischemic heart disease and other diseases of the circulatory system; Z86.19 Personal history of other infectious and parasitic diseases; Z87.440 Personal history of urinary (tract) infections; Z95.0 Presence of cardiac pacemaker; Z87.01 Personal history of pneumonia (recurrent); Z90.49 Acquired absence of other specified parts of digestive tract; Z68.28 Body mass index [BMI] 28.0-28.9, adult
CPT/HCPCS: 36415; 51702; 71045; 73560; 74176; 80048; 80053; 81001; 83605; 84145; 85025; 85027; 85651; 87040; 87086; 87186; 92526-GN; 92610-GN; 93005; 94640; 94760; 96365; 96375; 97110-GP; 97116-GP; 97162-GP; 97166-GO; 97530-GP; 97535-GO; 99291-25; C9113; J0690; J0696; J0780; J2020; J2185; J2405; J3010; J7030; J7512; J7620; J7626; Q0162; Q9966; S0028

== ENCOUNTER → 2017-10-24 | Outpatient (CLI) | payer MEDICARE, OTHER ==
[2017-10-24 15:19] LABS: ADD MAN DIFF? NO
[2017-10-24 15:24] LABS: BASO # 0.1 x10^3/uL (0.0-0.2); BASO % 1 % (0-3); EOS # 0.3 x10^3/uL (0.0-0.7); EOS % 3 % (0-3); HEMOGLOBIN 11.5 g/dL (12.0-15.5); LYMPH # 1.8 x10^3/uL (1.0-4.8); LYMPH % 19 % (24-48); MEAN CORPUSCULAR HEMOGLOBIN 32 pg (25-35); MEAN CORPUSCULAR HGB CONC 34 g/dL (31-37); MEAN CORPUSCULAR VOLUME 95 fL (79-100); MONO # 0.7 x10^3/uL (0.0-1.1); MONO % 7 % (0-9); NEUT # 6.7 x10^3uL (1.8-7.7); NEUT % 70 % (31-73); PLATELET COUNT 207 x10^3/uL (140-400); RED BLOOD COUNT 3.57 x10^6/uL (3.50-5.40); RED CELL DISTRIBUTION WIDTH 15.5 % (11.5-14.5); WHITE BLOOD COUNT 9.5 x10^3/uL (4.0-11.0)
[2017-10-24 15:41] LABS: % SAT IRON 20 % (15-34); IRON,SERUM 53 ug/dL (50-170)
[2017-10-24 15:50] LABS: ALBUMIN 3.7 g/dL (3.4-5.0); ANION GAP 11 (6-14); BLOOD UREA NITROGEN 34 mg/dL (7-20); CARBON DIOXIDE 27 mmol/L (21-32); CHLORIDE 104 mmol/L (98-107); FERRITIN 450 ng/mL (8-252); GFR 23.9; GLUCOSE 142 mg/dL (70-99); MAGNESIUM 1.9 mg/dL (1.8-2.4); PHOSPHORUS 3.9 mg/dL (2.6-4.7); SODIUM 142 mmol/L (136-145); URIC ACID 5.1 mg/dL (2.6-6.0)
[2017-10-25 04:24] LABS: CALCIUM PTH 10.1 mg/dL (8.7-10.3); CREATININE PTH 1.73 mg/dL (0.57-1.00); PHOSPHORUS PTH 3.9 mg/dL (2.5-4.5); PTH INTACT 24 pg/mL (15-65); eGFR AFRICAN-AMER 31 (>59); eGFR NON AFRICAN-AMER 27 (>59)
== END | disposition home or self-care (01) ==
LOC: LAB 14:57
DX: I13.0 Hypertensive heart and chronic kidney disease with heart failure and stage 1 through stage 4 chronic kidney disease, or unspecified chronic kidney disease (principal); I50.32 Chronic diastolic (congestive) heart failure; N18.4 Chronic kidney disease, stage 4 (severe); D63.1 Anemia in chronic kidney disease; E78.5 Hyperlipidemia, unspecified; E79.0 Hyperuricemia without signs of inflammatory arthritis and tophaceous disease; E87.6 Hypokalemia; Z68.27 Body mass index [BMI] 27.0-27.9, adult
CPT/HCPCS: 36415; 80069; 82728; 83540; 83550; 83735; 83970; 84550; 85025

== ENCOUNTER 2017-11-11 13:26 | Emergency (ER) | payer MEDICARE, OTHER | END 2017-11-11 14:48 | disposition home or self-care (01) | LOC: ER 14:48 | DX: M25.512 Pain in left shoulder (principal); M25.552 Pain in left hip; I25.10 Atherosclerotic heart disease of native coronary artery without angina pectoris; I13.0 Hypertensive heart and chronic kidney disease with heart failure and stage 1 through stage 4 chronic kidney disease, or unspecified chronic kidney disease; N18.9 Chronic kidney disease, unspecified; I50.9 Heart failure, unspecified; F32.9 Major depressive disorder, single episode, unspecified; J44.9 Chronic obstructive pulmonary disease, unspecified; Z87.440 Personal history of urinary (tract) infections; Z98.61 Coronary angioplasty status; Z91.041 Radiographic dye allergy status; W01.0XXA Fall on same level from slipping, tripping and stumbling without subsequent striking against object, initial encounter; Y93.89 Activity, other specified; Y99.8 Other external cause status; Y92.89 Other specified places as the place of occurrence of the external cause | CPT/HCPCS: 73030; 73060; 73502; 99284 ==

== ENCOUNTER → 2017-12-18 | Outpatient (CLI) | payer MEDICARE, OTHER ==
[2017-12-12 11:01] VITALS: BP 133/63
[~2017-12-18] MED LIST changes: +AMOX1TAB10 PO; +BENZ-8 PO; -BENZ100C15 PO; -FERR-26 PO; +FERR325T14 PO; +HYDR-2758 PO; -IPRA3AMP NEB; +IPRA3AMP29 NEB; +LACT1CAP19 PO; +ONDA4TAB10 SL
== END | disposition home or self-care (01) ==
LOC: PMGWOUND 10:23
PROVIDERS: ATTEND Emergency Medicine Undersea and Hyperbaric Medicine
DX: L89.613 Pressure ulcer of right heel, stage 3 (principal); I13.0 Hypertensive heart and chronic kidney disease with heart failure and stage 1 through stage 4 chronic kidney disease, or unspecified chronic kidney disease; I50.9 Heart failure, unspecified; N18.9 Chronic kidney disease, unspecified; M14.671 Charcot's joint, right ankle and foot; M35.3 Polymyalgia rheumatica; I25.10 Atherosclerotic heart disease of native coronary artery without angina pectoris; J44.9 Chronic obstructive pulmonary disease, unspecified; L84 Corns and callosities; M19.90 Unspecified osteoarthritis, unspecified site; F32.9 Major depressive disorder, single episode, unspecified; Z98.61 Coronary angioplasty status; Z91.041 Radiographic dye allergy status
CPT/HCPCS: 11042; 17250

== ENCOUNTER → 2017-12-25 | Outpatient (CLI) | payer MEDICARE, OTHER ==
[2017-12-12 11:01] VITALS: BP 133/63
== END | disposition home or self-care (01) ==
LOC: PMGWOUND 10:01
PROVIDERS: ATTEND Emergency Medicine Undersea and Hyperbaric Medicine
DX: L89.613 Pressure ulcer of right heel, stage 3 (principal); I13.0 Hypertensive heart and chronic kidney disease with heart failure and stage 1 through stage 4 chronic kidney disease, or unspecified chronic kidney disease; N18.9 Chronic kidney disease, unspecified; I50.9 Heart failure, unspecified; J44.9 Chronic obstructive pulmonary disease, unspecified; I25.10 Atherosclerotic heart disease of native coronary artery without angina pectoris; M14.671 Charcot's joint, right ankle and foot; L84 Corns and callosities; M35.3 Polymyalgia rheumatica; M19.90 Unspecified osteoarthritis, unspecified site; F32.9 Major depressive disorder, single episode, unspecified; Z98.61 Coronary angioplasty status
CPT/HCPCS: 11042

== ENCOUNTER → 2018-01-01 | Outpatient (CLI) | payer MEDICARE, OTHER ==
[2017-12-12 11:01] VITALS: BP 133/63
[~2018-01-01] MED LIST changes: -AMLO5TAB2; +AMLO5TAB7
== END | disposition home or self-care (01) ==
LOC: PMGWOUND 10:08
PROVIDERS: ATTEND Emergency Medicine Undersea and Hyperbaric Medicine
DX: L89.613 Pressure ulcer of right heel, stage 3 (principal); I13.0 Hypertensive heart and chronic kidney disease with heart failure and stage 1 through stage 4 chronic kidney disease, or unspecified chronic kidney disease; I50.9 Heart failure, unspecified; N18.9 Chronic kidney disease, unspecified; F32.9 Major depressive disorder, single episode, unspecified; J44.9 Chronic obstructive pulmonary disease, unspecified; M35.3 Polymyalgia rheumatica; I25.10 Atherosclerotic heart disease of native coronary artery without angina pectoris; M19.90 Unspecified osteoarthritis, unspecified site; L84 Corns and callosities; Z91.041 Radiographic dye allergy status; Z98.61 Coronary angioplasty status
CPT/HCPCS: 11042

== ENCOUNTER → 2018-01-08 | Outpatient (CLI) | payer MEDICARE, OTHER ==
[2017-12-12 11:01] VITALS: BP 133/63
== END | disposition home or self-care (01) ==
LOC: PMGWOUND 10:01
PROVIDERS: ATTEND Emergency Medicine Undersea and Hyperbaric Medicine
DX: L89.613 Pressure ulcer of right heel, stage 3 (principal); I13.0 Hypertensive heart and chronic kidney disease with heart failure and stage 1 through stage 4 chronic kidney disease, or unspecified chronic kidney disease; I50.9 Heart failure, unspecified; N18.9 Chronic kidney disease, unspecified; L84 Corns and callosities; F32.9 Major depressive disorder, single episode, unspecified; M14.671 Charcot's joint, right ankle and foot; G89.4 Chronic pain syndrome; M54.9 Dorsalgia, unspecified; J44.9 Chronic obstructive pulmonary disease, unspecified; I25.10 Atherosclerotic heart disease of native coronary artery without angina pectoris; M35.3 Polymyalgia rheumatica; M19.90 Unspecified osteoarthritis, unspecified site
CPT/HCPCS: 11042

== ENCOUNTER → 2018-01-15 | Outpatient (CLI) | payer MEDICARE, OTHER ==
[2018-01-09 11:25] VITALS: BP 137/76
== END | disposition home or self-care (01) ==
LOC: PMGWOUND 09:59
PROVIDERS: ATTEND Emergency Medicine Undersea and Hyperbaric Medicine
DX: L89.613 Pressure ulcer of right heel, stage 3 (principal); M14.671 Charcot's joint, right ankle and foot; I13.0 Hypertensive heart and chronic kidney disease with heart failure and stage 1 through stage 4 chronic kidney disease, or unspecified chronic kidney disease; N18.9 Chronic kidney disease, unspecified; I50.9 Heart failure, unspecified; L84 Corns and callosities; F32.9 Major depressive disorder, single episode, unspecified; G89.4 Chronic pain syndrome; M54.9 Dorsalgia, unspecified; M35.3 Polymyalgia rheumatica; M19.90 Unspecified osteoarthritis, unspecified site; J44.9 Chronic obstructive pulmonary disease, unspecified; I25.10 Atherosclerotic heart disease of native coronary artery without angina pectoris
CPT/HCPCS: 99214; G0463

== ENCOUNTER → 2018-04-07 | Outpatient (CLI) | payer MEDICARE, OTHER ==
[2018-02-06 12:36] VITALS: BP 149/66
[~2018-04-07] MED LIST changes: -HYDR-2758 PO; +HYDR-2761 PO
--- NOTE | 2018-04-07 17:18 | RAD ---
CT of the chest without contrast, 04/07/2018: HISTORY: Pulmonary fibrosis. Noncontrast scans were obtained and compared to a study from 01/16/2017. There are reticular and groundglass opacities in both lungs which are most prominent peripherally. There is greatest involvement of the left upper lobe and in the left lower lobe in an infrahilar location. These opacities are unchanged. No new infiltrate, mass or nodularity is seen. There is no evidence of honeycombing or bronchiectasis. No pleural fluid is evident. There is moderate calcific plaquing of the thoracic aorta and its branches without evidence of aneurysm. Moderate coronary artery calcifications are present. Moderate hypertrophic degenerative change is present in the spine. IMPRESSION: 1. Stable moderate fibrotic changes in both lungs. 2. Moderate calcific plaquing of the aorta and coronary arteries. 3. No new abnormality is detected. PQRS Compliance Statement: One or more of the following individualized dose reduction techniques were utilized for this examination: 1. Automated exposure control 2. Adjustment of the mA and/or kV according to patient size 3. Use of iterative reconstruction technique Electronically signed by: Romeo Clarke MD (04/07/2018 5:15 PM) [facility]
== END | disposition home or self-care (01) ==
LOC: CT 11:43
PROVIDERS: ATTEND Pathology Anatomic Pathology & Clinical Pathology
DX: J84.10 Pulmonary fibrosis, unspecified (principal); M89.38 Hypertrophy of bone, other site; I25.10 Atherosclerotic heart disease of native coronary artery without angina pectoris; R91.8 Other nonspecific abnormal finding of lung field
CPT/HCPCS: 71250